=== PATIENT | male | born 1940 | race Caucasian/White ===

== ENCOUNTER → 2016-08-15 | Outpatient (CLI) | payer OTHER ==
[2016-08-15 07:45] LABS: BASOPHILS # (AUTO) 0.03 10*3/UL; BASOPHILS % (AUTO) 0.7 % (0-1); EOSINOPHILS % (AUTO) 3.1 % (0-8); HEMATOCRIT 43.7 % (42.0-52.0); HEMOGLOBIN 15.4 g/dL (14.0-18.0); IMM GRAN % (AUTO) 0 % (0-5); IMM GRAN# (AUTO) 0 10*3/UL; LYMPHOCYTES # (AUTO) 1.58 10*3/uL; LYMPHOCYTES % (AUTO) 37.1 % (10-50); MEAN CORPUSCULAR HGB CONC 35.2 g/dL (33-37); MEAN PLATELET VOLUME 10.1 FL (7.4-12.2); MONOCYTES # (AUTO) 0.42 10*3/UL (0.3-0.8); MONOCYTES % (AUTO) 9.9 % (5-15); NEUTROPHILS % (AUTO) 49.2 % (50-80); RDW COEFFICIENT OF VARIATION 13.8 % (11.5-14.5); RED BLOOD COUNT 4.82 10^6/uL (4.70-6.10); WHITE BLOOD COUNT 4.26 10^3/uL (4.8-10.8)
[2016-08-15 07:50] LABS: PLATELET MORPHOLOGY COMMENT NORMAL MORPHOLOGY (NORM)
[2016-08-15 08:20] LABS: BILIRUBIN,TOTAL 0.7 mg/dL (0.3-1.2); BUN/CREATININE RATIO 23.33 (6-20); CALCIUM 9.8 mg/dL (8.7-10.7); CREATININE 0.9 mg/dL (0.70-1.50); LDL CHOLESTEROL,CALCULATED 80.8 mg/dL; POTASSIUM 4.5 meq/L (3.8-5.2); TOTAL PROTEIN 7.3 g/dL (6.1-8.0)
== END ==
LOC: LAB 07:27
PROVIDERS: ATTEND Internal Medicine
DX: E78.5 Hyperlipidemia, unspecified (principal); I10 Essential (primary) hypertension; E03.9 Hypothyroidism, unspecified; Z12.5 Encounter for screening for malignant neoplasm of prostate
CPT/HCPCS: 36415; 80053; 80061; 82550; 84443; 85025; G0103

== ENCOUNTER → 2016-08-20 | Outpatient (CLI) | payer OTHER | LOC: MMPC 11:11 | PROVIDERS: ATTEND Internal Medicine | DX: I49.3 Ventricular premature depolarization (principal); E78.5 Hyperlipidemia, unspecified; E03.9 Hypothyroidism, unspecified; F51.02 Adjustment insomnia | CPT/HCPCS: 99214; G0463 ==

== ENCOUNTER → 2017-01-31 | Outpatient (CLI) | payer OTHER ==
--- NOTE | 2017-02-02 13:07 | DI ---
CT CORONARY ARTERY SCORE, 01/31/2017 12:58 PM : Clinical History: Volunteer for testing of the CT software for coronary artery scoring. The patient w as not charged for this exam. Previous Exam: 07/11/2006. A low dose single breath-hold one second CT scan of the coronary arteries without IV contrast is perf ormed. The scans cover the entire heart. Sagittal and coronal images are generated. Axial 3 mm contig uous scans are sent to the [employer] off-line post-processing computer for analysis. The superintendent ammunition storage views are normal. There is no acute infiltrate or effusion. No pulmonary nodules are presen t. The heart size is normal. Computer analysis reveals calcifications in the left circumflex artery, the proximal portion of the LAD, and the right coronary artery. The Agatston score is 990 in a volume of 833 mm?. The previous Agatston score was 432. The current score places this patient between the 50th and 75th percentile for males above the age of 74 years. The noncontrast images of the aorta and pul monary arteries are normal. There is no bony abnormality. READIN. The cardiac and testing score has increased from 432 to 990 since 07/11/2006, a span of 10-1/2 ye ars. 2. Calcifications are present in the left circumflex artery, the LAD, and the right coronary artery.
== END ==
LOC: RAD 09:00
PROVIDERS: ATTEND Radiology Diagnostic Radiology
DX: Z00.00 Encounter for general adult medical examination without abnormal findings (principal)
CPT/HCPCS: 71250